=== PATIENT | male | born 1960 | race Caucasian/White ===

== ENCOUNTER 2021-06-02 23:35 | Emergency (ER) | payer OTHER ==
[~2021-06-02] VITALS: Ht 172.7 cm; Wt 99.8 kg
[2021-06-02 23:48] VITALS: BP_SYST 144
--- NOTE | 2021-06-02 23:48 | NUR ---
Patient to ER chair [address] to [facility] for evaluation. Side rails up. Report given to Brandon DAMIAN.
--- NOTE | 2021-06-03 00:31 | NUR ---
Written and verbal consent obtained from patient for blood alcohol, name and verified by patient. Disinfected patient's skin with iodine that did not contain alcohol or other volatile organic compound. Collected the blood from the subject named by venipuncture, in the presence of Officer Yamile. Used a sterile, dry hypodermic needle and dry vacuum blood collection. Two dry vacuum blood collection was supplied by the officer named above. Withdrew a specimen of blood from right AC of the subject named above. Inverted both blood tubes several times to ensure that the preservative and anticoagulant were thoroughly mixed in the blood specimen. I initialed both blood tube labels for identification. The labeled blood tubes were handed directly to the Officer named above. The blood tubes stopper remained in place while I had possession of the blood tubes. The Officer placed tubes into envelope and sealed it in my presence. Envelope initialed by myself and Officer named above. Patient tolerated well, bandage applied, and bleeding controlled.
--- NOTE | 2021-06-03 00:40 | NUR ---
Dr. Duong informed patient is waiting for assessment for medical clearence. Dr Duong verbalized understanding, no further orders. Patient is sitting in chair with [employer] at side of patient. Patient is sitting in chair, resting comfortably, no s/s of distress. Patient stated pain is 0/10. Patient chest rise and fall symmetrical. Addendum: 06/03/21 at [email or web address] Duong informed patient is waiting for assessment for medical clearance. Dr Duong verbalized understanding, no further orders. Patient is sitting in chair with [employer] at side of patient. Patient is sitting in chair, resting comfortably, no s/s of distress. Patient stated pain is 0/10. Patient chest rise and fall symmetrical.
--- NOTE | 2021-06-03 00:46 | NUR ---
FABIANA Nava examining patient in the [address].
--- NOTE | 2021-06-03 00:50 | NUR ---
Patient given written and verbal discharge instructions and verbalizes understanding. ER MD Nava discussed with patient the results and treatment provided. Patient in stable condition. Patient educated on pain management and to follow up with PMD. Pain Scale 0/10. Opportunity for questions provided and answered. Medication side effect fact sheet provided.
[2021-06-03 00:51] VITALS: BP_SYST 106
== END 2021-06-03 00:51 ==
LOC: SED 23:35
DX: Z02.89 Encounter for other administrative examinations (principal)
CPT/HCPCS: 99283